=== PATIENT | female | born 1985 | race Caucasian/White ===

== ENCOUNTER 2021-06-17 20:20 | Outpatient (CLI) | payer OTHER | END 2021-06-18 09:38 | disposition home or self-care (01) | LOC: OBS/DEL 20:20 | PROVIDERS: ATTEND Student in an Organized Health Care Education/Training Program | DX: O26.893 Other specified pregnancy related conditions, third trimester (principal); Z3A.30 30 weeks gestation of pregnancy; R50.9 Fever, unspecified ==